=== PATIENT | male | born 1990 | race Caucasian/White ===

== ENCOUNTER 2016-06-23 20:49 | Emergency (ER) | payer OTHER ==
[2016-06-23] MEDS ORDERED: HYDROcod/ACET 5/325 Prepack 6 PO ONE ×2 (21:06→21:09)
== END 2016-06-23 21:30 | disposition home or self-care (01) ==
DX: T23.151A Burn of first degree of right palm, initial encounter (principal); T23.131A Burn of first degree of multiple right fingers (nail), not including thumb, initial encounter; X19.XXXA Contact with other heat and hot substances, initial encounter; Y93.G3 Activity, cooking and baking